=== PATIENT | male | born 1985 | race Caucasian/White ===

== ENCOUNTER 2018-02-02 13:39 | Outpatient (RCR) | payer OTHER | END 2018-05-03 | disposition home or self-care (01) | LOC: WSOH | DX: S61.312A Laceration without foreign body of right middle finger with damage to nail, initial encounter (principal); S60.121A Contusion of right index finger with damage to nail, initial encounter; W23.0XXA Caught, crushed, jammed, or pinched between moving objects, initial encounter; Y93.H9 Activity, other involving exterior property and land maintenance, building and construction; Y99.0 Civilian activity done for income or pay; F17.220 Nicotine dependence, chewing tobacco, uncomplicated ==

== ENCOUNTER → 2019-02-28 | Outpatient (CLI) | payer OTHER | LOC: MHCPAIN 14:02 | DX: G89.29 Other chronic pain (principal); M47.817 Spondylosis without myelopathy or radiculopathy, lumbosacral region; M54.16 Radiculopathy, lumbar region; M53.3 Sacrococcygeal disorders, not elsewhere classified | CPT/HCPCS: G0463 ==

== ENCOUNTER → 2019-03-16 | Outpatient (CLI) | payer OTHER | LOC: MHCPAIN 07:52 | DX: M47.817 Spondylosis without myelopathy or radiculopathy, lumbosacral region (principal); M54.16 Radiculopathy, lumbar region | CPT/HCPCS: J1100; Q9967 ==

== ENCOUNTER → 2019-04-05 | Outpatient (CLI) | payer OTHER | LOC: MHCPAIN 12:25 | DX: G89.29 Other chronic pain (principal); M47.817 Spondylosis without myelopathy or radiculopathy, lumbosacral region; M54.16 Radiculopathy, lumbar region; M53.3 Sacrococcygeal disorders, not elsewhere classified | CPT/HCPCS: G0463 ==

== ENCOUNTER → 2019-05-10 | Outpatient (CLI) | payer OTHER | LOC: MHCPAIN 09:18 | DX: G89.29 Other chronic pain (principal); M47.817 Spondylosis without myelopathy or radiculopathy, lumbosacral region; M54.16 Radiculopathy, lumbar region; M53.3 Sacrococcygeal disorders, not elsewhere classified | CPT/HCPCS: G0463 ==

== ENCOUNTER → 2019-07-18 | Outpatient (CLI) | payer OTHER | LOC: MHCPAIN 12:21 | DX: G89.29 Other chronic pain (principal); M47.817 Spondylosis without myelopathy or radiculopathy, lumbosacral region; M54.16 Radiculopathy, lumbar region; M53.3 Sacrococcygeal disorders, not elsewhere classified | CPT/HCPCS: G0463 ==

== ENCOUNTER → 2019-08-10 | Outpatient (CLI) | payer OTHER | LOC: MHCPAIN 13:58 | DX: M47.817 Spondylosis without myelopathy or radiculopathy, lumbosacral region (principal); M54.16 Radiculopathy, lumbar region; M53.3 Sacrococcygeal disorders, not elsewhere classified | CPT/HCPCS: C1883; J0690 ==

== ENCOUNTER → 2019-08-14 | Outpatient (CLI) | payer OTHER | LOC: MHCPAIN 10:16 | DX: G89.29 Other chronic pain (principal) ==

== ENCOUNTER → 2019-08-17 | Outpatient (CLI) | payer OTHER | LOC: MHCPAIN 10:23 | DX: G89.29 Other chronic pain (principal); M47.817 Spondylosis without myelopathy or radiculopathy, lumbosacral region; M54.16 Radiculopathy, lumbar region; M53.3 Sacrococcygeal disorders, not elsewhere classified ==

== ENCOUNTER → 2023-11-03 | Outpatient (CLI) | payer OTHER | LOC: COL.CARD 14:02 | DX: R06.02 Shortness of breath (principal) | CPT/HCPCS: J7674 ==